=== PATIENT | male | born 1955 | race Caucasian/White ===

== ENCOUNTER 2017-01-07 14:37 | Outpatient (CLI) | payer MEDICARE | END 2017-01-07 14:38 | disposition home or self-care (01) | DX: M17.12 Unilateral primary osteoarthritis, left knee (principal); M11.262 Other chondrocalcinosis, left knee; M25.462 Effusion, left knee ==

== ENCOUNTER 2019-04-19 09:23 | Outpatient (CLI) | payer MEDICARE ==
[2019-04-19 10:33] LABS: BASOPHILS % (AUTO) 0.7 %; EOSINOPHILS # (AUTO) 0.1 10^3/uL (0.0-0.7); EOSINOPHILS % (AUTO) 1.8 %; HGB - HEMOGLOBIN 14.7 g/dL (14.0-18.0); LYMPHOCYTES # (AUTO) 1.7 10^3/uL (1.5-3.5); LYMPHOCYTES % (AUTO) 30.8 %; MEAN CORPUSCULAR HEMOGLOBIN 32.5 pg (27.0-31.0); MEAN CORPUSCULAR HGB CONC 33.3 g/dL (32.0-36.0); MEAN CORPUSCULAR VOLUME 97.6 fL (80.0-94.0); MEAN PLATELET VOLUME 7.1 fL (7.4-11.4); MONOCYTES # (AUTO) 0.4 10^3/uL (0.0-1.0); MONOCYTES % (AUTO) 7.4 %; NEUTROPHILS # (AUTO) 3.3 10^3/uL (1.5-6.6); NEUTROPHILS % (AUTO) 59.3 %; PLT - PLATELET COUNT 255 10^3/uL (130-450); RED BLOOD COUNT 4.51 10^6/uL (4.70-6.10); RED CELL DISTRIBUTION WIDTH 14.1 % (12.0-15.0); WHITE BLOOD COUNT 5.6 x10^3/uL (4.8-10.8)
== END 2019-04-19 09:24 | disposition home or self-care (01) ==
LOC: LAB 09:23
PROVIDERS: ATTEND Orthopaedic Surgery
DX: Z01.818 Encounter for other preprocedural examination (principal)
CPT/HCPCS: 36415; 80051; 85025; 93005

== ENCOUNTER 2019-07-28 20:37 | Emergency (ER) | payer MEDICARE ==
[2019-07-28] MEDS ORDERED: SODIUM CHLORIDE 0.9% 1,000 ML IV ONE ×2 (20:55→22:59)
[2019-07-28] MEDS ORDERED: ONDANSETRON 4 MG/2 ML VIAL IVP STA (21:08)
--- NOTE | 2019-07-28 21:14 | ED Physician Documentation ---
PD HPI NVD - Stated complaint Stated Complaint: ABD PX/VOMITNG - Chief complaint Chief Complaint: Abd Pain - History obtained from History obtained from: Patient - History of Present Illness Timing - onset: How many days ago (2) Timing - duration: Days (2) Timing - details: Abrupt onset Associated symptoms: Abdominal pain (Patient has had crampy abdominal pain associated with nausea and vomiting as well as some diarrhea. Symptoms started a couple of days after he ran out of his pain medications. He had switched providers apparently to a new pain clinic and there was a delay in getting the medication refilled. He would run out of his usual medicines at the appropriate time and the new prescription was not yet in. He was out of his medicines for 2 to 3 days and was having shakiness nausea sweatiness. He was given a temporary prescription by his primary care for some pain medicine locations short acting. He had taken 1 or 2 today but had been having vomiting so was not effective. He is here for evaluation.). No: Fever, Chest pain, Hematemesis Contributing factors: Other (ran out of pain meds several days ago). No: Sick contact, Bad food, Recent antibiotics, Alcohol use Improved by: No: Vomiting Worsened by: Eating Similar symptoms before: Has not had sx before Recently seen: Clinic (PMD yesterday) Review of Systems Constitutional: reports: Chills, Myalgias. denies: Fever Nose: denies: Rhinorrhea / runny nose, Congestion Throat: denies: Sore throat Cardiac: denies: Chest pain / pressure, Palpitations, Pedal edema Respiratory: denies: Dyspnea, Cough GI: reports: Abdominal Pain (crampy), Nausea, Vomiting, Diarrhea Neurologic: reports: Generalized weakness. denies: Focal weakness, Numbness, Altered mental status, Headache PD PAST MEDICAL HISTORY - Past Medical History Respiratory: Pneumonia : Kidney stones Musculoskeletal: Chronic back pain - Past Surgical History Past Surgical History: Yes General: Appendectomy Ortho: Spine surgery - Present Medications Home Medications: Ambulatory Orders Medication Instructions Recorded Confirmed RX: Baclofen 20 mg ORAL BID 08/30/16 08/30/16 RX: Buprenorphine HCl/Naloxone HCl 8 mg SL TID 08/30/16 08/30/16 [Suboxone 8 mg-2 mg Sl Film] RX: cloNIDine [Catapres] 0.1 mg ORAL TID 08/30/16 08/30/16 RX: clonazePAM [Clonazepam] 1 mg ORAL TID 08/30/16 08/30/16 Ondansetron [Zofran Odt] 8 mg SL PRN PRN #20 tab.rapdis 08/31/16 RX: Dextroamphetamine/Amphetamine 30 mg PO BID 08/31/16 08/31/16 [Dextroamp-Amphetamin 30 mg Tab] RX: Mirtazapine 45 mg PO QPM 08/31/16 08/31/16 RX: Oxycodone HCl [Roxicodone] 30 mg PO QID 08/31/16 08/31/16 Ondansetron Odt [Zofran] 4 mg TL Q6H PRN #10 tablet 07/29/19 RX: Famotidine 20 mg PO DAILY #30 tablet 07/29/19 - Allergies Allergies/Adverse Reactions: Allergies Allergy/AdvReac Type Severity Reaction Status Date / Time No Known Drug Allergies Allergy Verified 07/28/19 20:50 - Social History Does the pt smoke?: Yes Smoking Status: Smoker current status unk Does the pt drink ETOH?: No Does the pt have substance abuse?: No - Immunizations Immunizations are current?: Yes - POLST Patient has POLST: No PD ED PE NORMAL - Vitals Vital signs reviewed: Yes - General General: Alert and oriented X 3, No acute distress, Well developed/nourished - Neck Neck: Supple, no meningeal sign, No adenopathy - Cardiac Cardiac: RRR, No murmur - Respiratory Respiratory: Clear bilaterally - Abdomen Abdomen: Soft, Non distended, No organomegaly, Other (No focal tenderness but has mild general tenderness. Slightly more tender in the epigastric area but with no guarding or percussion tenderness.). No: Normal bowel sounds (increas ed) - Back Back: No CVA TTP - Derm Derm: Normal color, Warm and dry - Extremities Extremities: No deformity, No tenderness to palpate, Normal ROM s pain, No edema, No calf tenderness / cord - Neuro Neuro: Alert and oriented X 3, No motor deficit, Normal speech Results - Vitals Vitals: Vital Signs - 24 hr 07/28/19 07/28/19 07/28/19 20:40 21:40 21:51 Temperature 36.5 C Heart Rate 105 H 78 83 Respiratory 24 17 16 Rate Blood Pressure 147/82 H 142/85 H 140/71 H O2 Saturation 98 100 97 07/28/19 23:00 Temperature Heart Rate 88 Respiratory 17 Rate Blood Pressure 133/70 H O2 Saturation 94 Oxygen O2 Source Room air - Labs Labs: Laboratory Tests 07/28/19 07/28/19 21:05 21:05 WBC 14.0 H RBC 5.46 Hgb 17.6 Hct 51.8 MCV 94.9 H MCH 32.2 H MCHC 34.0 RDW 13.6 Plt Count 308 MPV 9.5 Neut # (Auto) 11.5 H Lymph # (Auto) 1.3 L [place] # (Auto) 1.1 H Eos # (Auto) 0.0 Baso # (Auto) 0.0 Absolute Nucleated RBC 0.00 Nucleated RBC % 0.0 Sodium 137 Potassium 3.2 L Chloride 92 L Carbon Dioxide 29 Anion Gap 16.0 H BUN 21 H Creatinine 1.0 Estimated GFR (MDRD) 75 L Glucose 150 H Calcium 10.3 Total Bilirubin 0.9 AST 21 ALT 17 Alkaline Phosphatase 103 Total Protein 9.0 H Albumin 4.9 Globulin 4.1 Albumin/Globulin Ratio 1.2 Lipase 54 H PD MEDICAL DECISION MAKING - ED course Complexity details: re-evaluated patient (He is feeling much improved with some IV fluids as well as pain medicine and antiemetics. Recheck of the abdomen is minimally tender at this point with just a little bit in the epigastric area. I do not feel there is a more significant organ process going on. I think is predominantly the lack of medication.), considered differential (He had been without his narcotic management insulin which is pretty high dose of 30 mg of asked the code own 4 times a day and 30 mg of morphine 3 times a day. As such she is no doubt having some narcotic withdrawal. He also had not been having his omeprazole and so presumably would have some gastritis as well related to that as well as the vomiting.), d/w patient Departure - Departure Disposition: 01 Home, Self Care Clinical Impression: Nausea vomiting and diarrhea, Dehydration Withdrawal symptoms, drug or narcotic Qualifiers: Substance type: opioid Qualified Code(s): F11.23 - Opioid dependence with withdrawal Gastritis Qualifiers: Gastritis type: unspecified gastritis Chronicity: acute Gastritis bleeding: without bleeding Qualified Code(s): K29.00 - Acute gastritis without bleeding Condition: Stable Record reviewed to determine appropriate education?: Yes Instructions: ED Dehydration Follow-Up: Salvatore Velazquez MD [Primary Care Provider] - Prescriptions: RX: Famotidine 20 mg PO DAILY #30 tablet Ondansetron Odt [Zofran] 4 mg TL Q6H PRN #10 tablet PRN Reason: Nausea / Vomiting Comments: Stay well-hydrated. Can continue usual pain medications and also your stomach medicines. Famotidine daily for a month. Use ondansetron if needed for nausea. I think much of your symptoms were from the narcotic withdrawal and then probably led into some irritated stomach (gastritis). Hopefully being hydrated and less symptoms now, he will be able to maintain with the medications at home that you normally take. Recheck if not improved well over the next day or 2 return sooner if worse. Discharge Date/Time: 07/29/19 01:05
[2019-07-28 21:23] LABS: BASOPHILS % (AUTO) 0.2 %; HGB - HEMOGLOBIN 17.6 g/dL (14.0-18.0); LYMPHOCYTES # (AUTO) 1.3 10^3/uL (1.5-3.5); MEAN CORPUSCULAR HEMOGLOBIN 32.2 pg (27.0-31.0); MEAN CORPUSCULAR VOLUME 94.9 fL (80.0-94.0); MEAN PLATELET VOLUME 9.5 fL (7.4-11.4); MONOCYTES # (AUTO) 1.1 10^3/uL (0.0-1.0); MONOCYTES % (AUTO) 8.1 %; NEUTROPHILS # (AUTO) 11.5 10^3/uL (1.5-6.6); NEUTROPHILS % (AUTO) 82.1 %; PLT - PLATELET COUNT 308 10^3/uL (130-450); RED BLOOD COUNT 5.46 10^6/uL (4.70-6.10); RED CELL DISTRIBUTION WIDTH 13.6 % (12.0-15.0)
[2019-07-28] MEDS ORDERED: HYDROmorphone 2 MG/ML VIAL IVP STA ×2 (21:29→23:28)
[2019-07-28] MEDS ORDERED: HALOPERIDOL 5 MG/ML VIAL IVP ONE (21:30)
[2019-07-28] MEDS ORDERED: ACETAMINOPHEN 1,000 MG/100 ML 100 ML IV STA (21:30)
[2019-07-28] MEDS ORDERED: FAMOTIDINE 20 MG/2 ML VIAL IVP STA (21:30)
[2019-07-28 21:37] LABS: ALBUMIN 4.9 g/dL (3.2-5.5); ALBUMIN/GLOBULIN RATIO 1.2 (1.0-2.2); BILIRUBIN,TOTAL 0.9 mg/dL (0.2-1.0); CALCIUM 10.3 mg/dL (8.5-10.3)
[2019-07-28] MEDS ORDERED: POTASSIUM CHLOR 10 MEQ/100 ML 10 MEQ/100 ML BAG IV STA (22:59)
[2019-07-28 23:31] VITALS: BP 133/70
--- NOTE | 2019-07-28 23:56 | Ultrasound Report ---
Reason: upper abd pain and vomiting Procedure Date: 07/28/2019 Accession Number: [id number] / [id number] Procedure: US - Abdomen Limited CPT Code: FULL RESULT: EXAM: ABDOMEN ULTRASOUND LIMITED, RUQ EXAM DATE: 07/28/2019 11:00 PM CLINICAL HISTORY: Upper abdomen pain and vomiting. COMPARISON: None. TECHNIQUE: Real-time scanning was performed with static images obtained. FINDINGS: Liver: Normal in size and echotexture. 15 cm. Main portal vein flow: Hepatopetal. Gallbladder: Sludge and small stones noted within the gallbladder. No gallbladder wall thickening or pericholecystic fluid collections. Biliary System: CBD measures 9 mm. Limited visualization of the lower common bile duct which is obscured by bowel gas artifact. Other: No right hydronephrosis. The pancreas is largely obscured by bowel gas. IMPRESSION: 1. Gallbladder sludge and stones without evidence of acute cholecystitis. 2. The visualized common bile duct is dilated to 9 mm, however, the lower common bile duct and pancreas are obscured by bowel gas. Clinical correlation recommended to exclude cholestasis. MRCP may be helpful to exclude a lower CBD stone or lesion if clinically indicated. RADIA
[2019-07-29] MEDS ORDERED: ONDANSETRON ODT 4 MG Prepack 2 TL PRN (00:41)
== END 2019-07-29 01:05 | disposition home or self-care (01) ==
LOC: ED 20:37
DX: F11.23 Opioid dependence with withdrawal (principal); K29.70 Gastritis, unspecified, without bleeding
CPT/HCPCS: 36415; 76705; 80053; 83690; 85025; 96365; 96367; 96375; 99284; 99285; J0131; J1170

== ENCOUNTER 2021-05-23 11:44 | Outpatient (CLI) | payer MEDICARE ==
--- NOTE | 2021-05-23 12:22 | XRAY Report ---
PROCEDURE: Knee 3 View RT INDICATIONS: PAIN DUE TO INTERNAL ORTHOPEDIC DEVICE TECHNIQUE: 3) views of the right knee(s) were acquired. COMPARISON: None. FINDINGS: Bones: No fractures or dislocations. No suspicious bony lesions. Soft tissues: No joint effusion. No suspicious soft tissue calcifications. IMPRESSION: Right total knee arthroplasty shows no evidence of device loosening or disruption, or nate int effusion. Reviewed by: Kieran Murrell MD on 05/23/2021 12:21 PM PDT Approved by: Kieran Murrell MD on 05/23/2021 12:21 PM PDT Station ID: [id number]
== END 2021-05-23 11:45 | disposition home or self-care (01) ==
LOC: DI 11:44
PROVIDERS: ATTEND Family Medicine
DX: T84.84XS Pain due to internal orthopedic prosthetic devices, implants and grafts, sequela (principal); Z96.653 Presence of artificial knee joint, bilateral

== ENCOUNTER 2021-09-11 13:05 | Outpatient (CLI) | payer MEDICARE, OTHER ==
[2021-09-11 20:01] LABS: BASOPHILS % (AUTO) 0.6 %; EOSINOPHILS # (AUTO) 0.1 10^3/uL (0.0-0.7); EOSINOPHILS % (AUTO) 1.9 %; HCT - HEMATOCRIT 43.1 % (42.0-52.0); HGB - HEMOGLOBIN 13.8 g/dL (14.0-18.0); LYMPHOCYTES # (AUTO) 1.7 10^3/uL (1.5-3.5); LYMPHOCYTES % (AUTO) 34.1 %; MEAN CORPUSCULAR HEMOGLOBIN 32.2 pg (27.0-31.0); MEAN CORPUSCULAR VOLUME 100.7 fL (80.0-94.0); MEAN PLATELET VOLUME 8.7 fL (7.4-11.4); MONOCYTES # (AUTO) 0.3 10^3/uL (0.0-1.0); MONOCYTES % (AUTO) 5.8 %; NEUTROPHILS # (AUTO) 2.8 10^3/uL (1.5-6.6); NEUTROPHILS % (AUTO) 57.6 %; PLT - PLATELET COUNT 289 10^3/uL (130-450); RED BLOOD COUNT 4.28 10^6/uL (4.70-6.10); RED CELL DISTRIBUTION WIDTH 13.7 % (12.0-15.0); WHITE BLOOD COUNT 4.8 x10^3/uL (4.8-10.8)
[2021-09-11 20:16] LABS: BUN - BLOOD UREA NITROGEN 11 mg/dL (6-20); CALCIUM 8.9 mg/dL (8.5-10.3); CARBON DIOXIDE - CO2 28 mmol/L (21-32); CHLORIDE 100 mmol/L (101-111); CREATININE 0.8 mg/dL (0.6-1.2); CRP - C-REACTIVE PROTEIN < 1.0 mg/dL (0-1.0); GFR - MDRD 97 (>89); GLUCOSE 105 mg/dL (70-100); POTASSIUM 4.4 mmol/L (3.5-5.0); SODIUM 136 mmol/L (135-145); URIC ACID 2.8 mg/dL (2.6-7.2)
== END 2021-09-11 13:06 | disposition home or self-care (01) ==
LOC: LAB.S 13:05
PROVIDERS: ATTEND Emergency Medicine
DX: M10.9 Gout, unspecified (principal)
CPT/HCPCS: 36415; 80048; 84550; 85025; 86140

== ENCOUNTER 2022-02-10 10:49 | Emergency (ER) | payer MEDICARE, OTHER ==
--- NOTE | 2022-02-10 11:29 | ED Physician Documentation ---
PD HPI ALTERED MENTAL STATUS - Stated complaint Stated Complaint: CANT WALK/FALLING/ALOC - Chief complaint Chief Complaint: General - History obtained from History obtained from: Patient, Family - History of Present Illness Timing - onset: Today Timing - duration: Hours Timing - details: Abrupt onset ( states sitting at table this morning, had onset of headache and appeared near syncope for 5-10 seconds, then trouble talking clearly and general weakness abruptly.) Quality / character: Confused, Agitated (for 2-3 days) Associated symptoms: Headache (onset this morning), NVD (some nausea and loose stools for 1-2 days, states seems related to opioid withdrawal similar to prior episodes. Was nauseated without vomiting. Shaky with some stumbling on gait. Still conversant.), General weakness. No: Fever Contributing factors: Other ( states the patient may have taken extra 1-2 clonidine tabs last night instead of pain meds.). No: Anticoagulated, Recent med change (Chronic opioid use for low back pain. He had used extra doses last week so ran out early 2 to 3 days ago and so was having some mild withdrawal symptoms. Nausea and shaky. Has had similar in the past if ran out. Current weakness/trouble speaking is different, per .), Intoxicated [place] status: Alert and oriented X 3, Ambulatory (He has chronic low back pain so walks slowly and gentle movement. Chronic pain meds.) Similar symptoms before: Has not had sx before Recently seen: Not recently seen Review of Systems Constitutional: denies: Fever, Chills Eyes: denies: Loss of vision, Photophobia Nose: denies: Rhinorrhea / runny nose, Congestion Throat: denies: Sore throat Cardiac: denies: Chest pain / pressure Respiratory: denies: Dyspnea, Cough GI: reports: Nausea, Diarrhea. denies: Abdominal Pain, Abdominal Swelling, Vomiting, Bloody / black stool : denies: Incontinent Skin: denies: Abrasion (s), Laceration (s) Musculoskeletal: reports: Back pain (chronic with prior back surgeries.). denies: Neck pain Neurologic: reports: Generalized weakness, Confused, Altered mental status (trouble articulating words this morning), Headache (abrupt this morning). denies: Focal weakness, Numbness Endocrine: denies: Easy bruising / bleeding Immunocompromised: denies: Immunocompromised PD PAST MEDICAL HISTORY - Past Medical History Cardiovascular: Hypertension Respiratory: Pneumonia Neuro: None Endocrine/Autoimmune: None : Kidney stones Psych: None Musculoskeletal: Chronic back pain - Past Surgical History Past Surgical History: Yes General: Appendectomy Ortho: Spine surgery - Present Medications Home Medications: Ambulatory Orders Medication Instructions Recorded Confirmed cloNIDine [Catapres] 0.1 mg ORAL TID 08/30/16 02/10/22 clonazePAM [Clonazepam] 1 mg ORAL TID 08/30/16 02/10/22 Dextroamphetamine/Amphetamine 30 mg PO BID 08/31/16 02/10/22 [Dextroamp-Amphetamin 30 mg Tab] Oxycodone HCl [Roxicodone] 30 mg PO QID 08/31/16 02/10/22 Cyclobenzaprine [Flexeril] 10 mg PO TID PRN 02/10/22 02/10/22 Fluoxetine HCl [Prozac] 40 mg PO DAILY 02/10/22 02/10/22 Gabapentin [Neurontin] 800 mg PO 02/10/22 Morphine ER 60 mg PO BID 02/10/22 02/10/22 Nortriptyline HCl [Pamelor] 50 mg PO DAILY 02/10/22 02/10/22 Tamsulosin [Flomax] 0.4 mg PO DAILY 02/10/22 02/10/22 Trazodone HCl 100 mg PO HS 02/10/22 02/10/22 - Allergies Allergies/Adverse Reactions: Allergies Allergy/AdvReac Type Severity Reaction Status Date / Time No Known Drug Allergies Allergy Verified 02/10/22 11:05 - Social History Does the pt smoke?: Yes Smoking Status: Smoker current status unk Does the pt drink ETOH?: No Does the pt have substance abuse?: No - Immunizations Immunizations are current?: Yes - POLST Patient has POLST: No PD ED PE NORMAL - Vitals Vital signs reviewed: Yes (BP adequate) - General General: Alert and oriented X 3, Well developed/nourished, Other (Appears uncomfortable from headache. He is answering questions with dysarthria. Content seems okay. He does have some accent but still can tell the wording is slurred.) - HEENT HEENT: Atraumatic - Neck Neck: Supple, no meningeal sign, No bony TTP, No adenopathy - Cardiac Cardiac: No murmur. No: RRR (bradycardic but regular. ) - Respiratory Respiratory: Clear bilaterally, Other (no chestwall tenderness. ) - Abdomen Abdomen: Soft, Non tender - Back Back: No CVA TTP - Derm Derm: Warm and dry. No: Normal color (mild pallor) - Extremities Extremities: No tenderness to palpate, Normal ROM s pain - Neuro Neuro: Alert and oriented X 3, Other (General motor weakness arms and legs. Dysarthria but content seems normal.) Eye Opening: Spontaneous Motor: Obeys Commands Verbal: Confused GCS Score: 14 Results - Vitals Vitals: Vital Signs - 24 hr 02/10/22 02/10/22 02/10/22 11:05 11:24 12:01 Temperature 36 C L Heart Rate 42 L 33 L 36 L Respiratory 12 15 12 Rate Blood Pressure 104/74 131/60 H 154/68 H O2 Saturation 100 96 02/10/22 12:33 Temperature Heart Rate 36 L Respiratory 18 Rate Blood Pressure 156/63 H O2 Saturation 100 Oxygen O2 Source Room air - EKG (time done) 11:05 Rate: Rate (enter#) (39) Rhythm: Sinus bradycardia [place]: Normal Intervals: Normal [place] QRS: Normal Ischemia: Normal ST segments. No: ST elevation c/w ischemia, ST depression - Labs Labs: Laboratory Tests 02/10/22 02/10/22 02/10/22 11:07 11:07 11:07 WBC 11.3 H RBC 5.52 Hgb 17.7 Hct 51.9 MCV 94.0 MCH 32.1 H MCHC 34.1 RDW 13.2 Plt Count 245 MPV 9.8 Neut # (Auto) 9.1 H Lymph # (Auto) 1.4 L [place] # (Auto) 0.7 Eos # (Auto) 0.0 Baso # (Auto) 0.0 Absolute Nucleated RBC 0.00 Nucleated RBC % 0.0 Sodium 137 Potassium 3.7 Chloride 98 L Carbon Dioxide 25 Anion Gap 14.0 H BUN 22 H Creatinine 0.9 Estimated GFR (MDRD) 84 L Glucose 139 H POC Whole Bld Glucose Calcium 9.7 Magnesium 2.1 Total Bilirubin 0.7 AST 14 ALT 12 Alkaline Phosphatase 79 Troponin I High Sens 4.3 Total Protein 7.9 Albumin 4.6 Globulin 3.3 Albumin/Globulin Ratio 1.4 Lipase 27 Salicylates < 6.0 Urine Opiates Screen Ur Oxycodone Screen Urine Methadone Screen Ur Propoxyphene Screen Acetaminophen < 10 L Ur Barbiturates Screen Ur Tricyclics Screen Ur Phencyclidine Scrn Ur Amphetamine Screen U Methamphetamines Scrn U Benzodiazepines Scrn Urine Cocaine Screen U Cannabinoids Screen 02/10/22 02/10/22 11:17 12:24 WBC RBC Hgb Hct MCV MCH MCHC RDW Plt Count MPV Neut # (Auto) Lymph # (Auto) [place] # (Auto) Eos # (Auto) Baso # (Auto) Absolute Nucleated RBC Nucleated RBC % Sodium Potassium Chloride Carbon Dioxide Anion Gap BUN Creatinine Estimated GFR (MDRD) Glucose POC Whole Bld Glucose 70 Calcium Magnesium Total Bilirubin AST ALT Alkaline Phosphatase Troponin I High Sens Total Protein Albumin Globulin Albumin/Globulin Ratio Lipase Salicylates Urine Opiates Screen POSITIVE H Ur Oxycodone Screen POSITIVE H Urine Methadone Screen NEGATIVE Ur Propoxyphene Screen NEGATIVE Acetaminophen Ur Barbiturates Screen NEGATIVE Ur Tricyclics Screen NEGATIVE Ur Phencyclidine Scrn NEGATIVE Ur Amphetamine Screen POSITIVE H U Methamphetamines Scrn NEGATIVE U Benzodiazepines Scrn NEGATIVE Urine Cocaine Screen NEGATIVE U Cannabinoids Screen NEGATIVE - Rads (name of study) chest Radiology: Prelim report reviewed (no acute process), See rad report head CT Radiology: Prelim report reviewed (left parietal intraparenchymal 3.6 mm bleed with some subdural extension in falx. No midline shift. Minimal effacing. Some edema. ), See rad report PD MEDICAL DECISION MAKING - ED course Complexity details: reviewed results (ICH), re-evaluated patient (He was given some pain medicine. He seems a little prompter with his answers though there is still dysarthria. Still general weakness. Presume some element of opioid withdrawal but his main symptoms are the intracranial bleed.), considered differential (His bradycardia may be from extra clonidine though I think it more likely vagal from headache and acute injury. He is acting generally weak with altered speech so concern for intracranial process. Will check labs as well. Consider low Na, glcose, other process. ), d/w patient, d/w applications consultant (I talked with neurosurgery as well as neuro ICU vp ancillary at [facility]. They are accepting of the patient.) - Critical Care Time(min): 45 Time Includes: Direct patient care, Reassess patient, Document care, Coordinate care, Medical consult Data interpretation: Labs, CXR Procedures excluded from critical care time: EKG Departure - Departure Disposition: 02 Transfer Acute Care Hosp Clinical Impression: Intraparenchymal hemorrhage of brain, Bradycardia Altered mental status Qualifiers: Altered mental status type: stupor Qualified Code(s): R40.1 - Stupor Chronic back pain Qualifiers: Back pain location: low back pain Back pain laterality: unspecified Sciatica presence: unspecified whether sciatica present Qualified Code(s): M54.50 - Low back pain, unspecified; G89.29 - Other chronic pain Opioid dependence Qualifiers: Substance use status: uncomplicated Qualified Code(s): F11.20 - Opioid dependence, uncomplicated Condition: Stable
[2022-02-10] MEDS ORDERED: SODIUM CHLORIDE 0.9% 1,000 ML IV STA (11:31)
[2022-02-10] MEDS ORDERED: HYDROmorphone 0.5 MG/0.5 ML SYRINGE IVP STA (11:35)
[2022-02-10 11:43] LABS: BASOPHILS % (AUTO) 0.2 %; HCT - HEMATOCRIT 51.9 % (42.0-52.0); HGB - HEMOGLOBIN 17.7 g/dL (14.0-18.0); LYMPHOCYTES # (AUTO) 1.4 10^3/uL (1.5-3.5); LYMPHOCYTES % (AUTO) 12.7 %; MEAN CORPUSCULAR HEMOGLOBIN 32.1 pg (27.0-31.0); MEAN CORPUSCULAR HGB CONC 34.1 g/dL (32.0-36.0); MEAN PLATELET VOLUME 9.8 fL (7.4-11.4); MONOCYTES # (AUTO) 0.7 10^3/uL (0.0-1.0); MONOCYTES % (AUTO) 6.1 %; NEUTROPHILS # (AUTO) 9.1 10^3/uL (1.5-6.6); NEUTROPHILS % (AUTO) 80.6 %; PLT - PLATELET COUNT 245 10^3/uL (130-450); RED BLOOD COUNT 5.52 10^6/uL (4.70-6.10); RED CELL DISTRIBUTION WIDTH 13.2 % (12.0-15.0); WHITE BLOOD COUNT 11.3 x10^3/uL (4.8-10.8)
[2022-02-10 11:54] LABS: ACETAMINOPHEN < 10 ug/mL (10-30); ALBUMIN 4.6 g/dL (3.2-5.5); ALBUMIN/GLOBULIN RATIO 1.4 (1.0-2.2); ALKALINE PHOSPHATASE 79 IU/L (42-121); ALT ALANINE AMINOTRANSFERASE 12 IU/L (10-60); AST ASPARTATE AMINOTRANSFERASE 14 IU/L (10-42); BILIRUBIN,TOTAL 0.7 mg/dL (0.2-1.0); BUN - BLOOD UREA NITROGEN 22 mg/dL (6-20); CALCIUM 9.7 mg/dL (8.5-10.3); CARBON DIOXIDE - CO2 25 mmol/L (21-32); CHLORIDE 98 mmol/L (101-111); CREATININE 0.9 mg/dL (0.6-1.2); GFR - MDRD 84 (>89); GLUCOSE 139 mg/dL (70-100); LIPASE 27 U/L (22-51); MAGNESIUM 2.1 mg/dL (1.7-2.8); POTASSIUM 3.7 mmol/L (3.5-5.0); SALICYLATE < 6.0 mg/dL; SODIUM 137 mmol/L (135-145); TOTAL PROTEIN 7.9 g/dL (6.7-8.2)
--- NOTE | 2022-02-10 11:55 | CT Report ---
PROCEDURE: HEAD WO INDICATIONS: AMS today TECHNIQUE: Noncontrast 4.5 mm thick angled axial sections acquired from the foramen magnum to the vertex. For r adiation dose reduction, the following was used: automated exposure control, adjustment of mA and/or kV according to patient size. COMPARISON: None. FINDINGS: Image quality: Excellent. CSF spaces: Basal cisterns are patent. No extra-axial fluid collections. Ventricles are normal in size and shape. Brain: No midline shift. Intraparenchymal hemorrhage within the left superomedial parietal lobe mesha uring 36 mm anteroposterior. Moderate surrounding ill-defined low density is present, indicating vaso genic edema. There is a small amount of adjacent high density material within the interhemispheric fi ssure with a maximal thickness of roughly 6 mm transverse, which extends into the left supratentorial region. Angelo-white matter interface is normal. Skull and face: Calvarium and visualized facial bones are intact, without suspicious lesions. Sinuses: There is moderate because of thickening within the bilateral ethmoid air cells. Bilateral m axillary sinus retention cysts are present. Mastoids are clear. Visualized sinuses and mastoids are o therwise clear. IMPRESSION: 1. Intraparenchymal hemorrhage within the left parietal lobe with extension into the posterior parafa lcine and left supratentorial subdural space. 2. Sinus disease. 3. Findings discussed with Dr. Scott on 02/10/2022 at 1152 hours. Reviewed by: Lovely Grayson MD on 02/10/2022 11:53 AM PDT Approved by: Lovely Grayson MD on 02/10/2022 11:53 AM PDT Station ID: [id number]
--- NOTE | 2022-02-10 12:00 | XRAY Report ---
PROCEDURE: Chest 1 View X-Ray INDICATIONS: chest pain TECHNIQUE: One view of the chest was acquired. COMPARISON: None FINDINGS: Surgical changes and devices: None. Lungs and pleura: No pleural effusions or pneumothorax. Lungs are clear. Mediastinum: Mediastinal contours appear normal. Heart size is normal. Bones and chest wall: No suspicious bony lesions. Overlying soft tissues appear unremarkable. IMPRESSION: No acute process. Reviewed by: Lovely Grayson MD on 02/10/2022 11:59 AM PDT Approved by: Lovely Grayson MD on 02/10/2022 11:59 AM PDT Station ID: [id number]
[2022-02-10] MEDS ORDERED: DEXTROSE 10% 250 ML IV STA (12:07)
[2022-02-10] MEDS ORDERED: TRANEXAMIC ACID 1,000 MG in SODIUM CHLORIDE 0.9% 100ML 100 ML IV STA (12:08)
[2022-02-10 12:36] LABS: MUDS CUTOFF CONCENTRATIONS CUTOFF CONC BELOW:
[2022-02-10 13:02] LABS: AMPHETAMINE SCREEN,URINE POSITIVE (NEGATIVE); BARBITURATE SCREEN,UR NEGATIVE (NEGATIVE); BENZODIAZEPINES SCREEN, URINE NEGATIVE (NEGATIVE); COCAINE SCREEN URINE NEGATIVE (NEGATIVE); METHADONE SCREEN, URINE NEGATIVE (NEGATIVE); METHAMPHETAMINES SCREEN, URINE NEGATIVE (NEGATIVE); OPIATE SCREEN, URINE POSITIVE (NEGATIVE); OXYCODONE SCREEN, URINE POSITIVE (NEGATIVE); PROPOXYPHENE SCREEN, URINE NEGATIVE (NEGATIVE); THC CANNABINOID SCREEN, URINE NEGATIVE (NEGATIVE); TRICYCLIC ANTIDEPRESSANT,URINE NEGATIVE (NEGATIVE)
[2022-02-10 13:11] VITALS: BP 158/67
== END 2022-02-10 13:41 | disposition short-term general hospital (02) ==
LOC: ED 10:49
DX: I61.9 Nontraumatic intracerebral hemorrhage, unspecified (principal); I10 Essential (primary) hypertension; F17.200 Nicotine dependence, unspecified, uncomplicated; R40.1 Stupor; M54.50 Low back pain, unspecified; G89.29 Other chronic pain; Z20.822 Contact with and (suspected) exposure to COVID-19
CPT/HCPCS: 36415; 70450; 71045; 80053; 80306; 80307; 83690; 83735; 84484; 85025; 87635; 93005; 96374; 96375; 99285; 99291; G0480; J1170; J3490; 80329; 86850; 86900; 86901

== ENCOUNTER 2022-04-07 12:24 | Emergency (ER) | payer MEDICARE, OTHER ==
--- OUTSIDE RECORDS SUMMARY | 2022-04-07 12:36 | EXTERNAL MEDICAL SUMMARY RPT | Continuity of Care Document ---
:1955 Author Organization [facility] Address [address] [place] [address] Phone Allergies No information. Encounters No information. Medications No information. 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
[2022-04-07] MEDS ORDERED: SODIUM CHLORIDE 0.9% 1,000 ML IV STA (12:47)
--- NOTE | 2022-04-07 12:51 | ED Physician Documentation ---
History of Present Illness - Stated complaint Stated Complaint: HEAD PAIN - Chief complaint Chief Complaint: Neuro - Additonal information Additional information: 66-year-old male presents to the emergency department for evaluation of approxi mately 10 days frontal headache. This gentleman has a history of an intraparenchymal hemorrhage 02/10/2022. He was initially seen in this emergency department and ultimately transferred to [facility] for further care. His at the bedside states that he had no residual physical side effects from the intraparenchymal hemorrhage with the exception of some personality changes. This gentleman has a history of chronic back pain, as well as opioid dependence. He does take clonazepam and morphine daily for treatment of such. With the onset of this headache he has had no fevers, chills or neck pain. No nausea or vomiting. He appears chronically debilitated and is unable to stand upright due to the back pain. Patient is scheduled for an MRI on 22 April with a follow-up with neurology 2 days later at [facility] Review of Systems Constitutional: denies: Fever, Chills Eyes: denies: Loss of vision Ears: reports: Reviewed and negative Nose: reports: Reviewed and negative Throat: reports: Reviewed and negative Cardiac: denies: Chest pain / pressure, Palpitations Respiratory: denies: Dyspnea, Cough GI: denies: Abdominal Pain, Nausea, Vomiting Skin: denies: Rash, Lesions Musculoskeletal: reports: Back pain (chroniv) Neurologic: reports: Headache. denies: Syncope, Seizure, Confused Psychiatric: reports: Reviewed and negative PD PAST MEDICAL HISTORY - Past Medical History Cardiovascular: Hypertension Respiratory: Pneumonia Neuro: None Endocrine/Autoimmune: None : Kidney stones HEENT: None Psych: None Musculoskeletal: Chronic back pain Derm: None - Past Surgical History Past Surgical History: Yes General: Appendectomy Ortho: Spine surgery - Present Medications Home Medications: Ambulatory Orders Medication Instructions Recorded Confirmed cloNIDine [Catapres] 0.1 mg ORAL TID 08/30/16 02/10/22 clonazePAM [Clonazepam] 1 mg ORAL TID 08/30/16 02/10/22 Dextroamphetamine/Amphetamine 30 mg PO BID 08/31/16 02/10/22 [Dextroamp-Amphetamin 30 mg Tab] Oxycodone HCl [Roxicodone] 30 mg PO QID 08/31/16 02/10/22 Cyclobenzaprine [Flexeril] 10 mg PO TID PRN 02/10/22 02/10/22 Fluoxetine HCl [Prozac] 40 mg PO DAILY 02/10/22 02/10/22 Gabapentin [Neurontin] 800 mg PO 02/10/22 Morphine ER 60 mg PO BID 02/10/22 02/10/22 Nortriptyline HCl [Pamelor] 50 mg PO DAILY 02/10/22 02/10/22 Tamsulosin [Flomax] 0.4 mg PO DAILY 02/10/22 02/10/22 Trazodone HCl 100 mg PO HS 02/10/22 02/10/22 - Allergies Allergies/Adverse Reactions: Allergies Allergy/AdvReac Type Severity Reaction Status Date / Time No Known Drug Allergies Allergy Verified 04/07/22 12:31 - Social History Does the pt smoke?: Yes Smoking Status: Smoker current status unk Does the pt drink ETOH?: No Does the pt have substance abuse?: No - Immunizations Immunizations are current?: Yes - POLST Patient has POLST: No PD ED PE EXPANDED - General General: Alert, In Pain, Other (Thin appearance) - Neck Neck: Supple w/out meningeal sx. No: Adenopathy - Cardiac Cardiac: Regular Rate, Radial strong equal, Pedal strong equal, Cap refill < 2 sec - Respiratory Respiratory: Clear to ausultation clotilde - Abdomen Abdomen: Normal Bowel sounds. No: Tender to palpation - Extremities Extremities: Normal. No: Deformity, Tenderness - Neuro Neuro: Alert and Oriented X 3, Lethargic, CNII-XII intact, Normal speech. No: Nystagmus - GCS Eye Opening: Spontaneous Motor: Obeys Commands Verbal: Oriented Total: 15 Results - Vitals Vitals: Vital Signs - 24 hr 04/07/22 12:31 Temperature 36.5 C Heart Rate 82 Respiratory 16 Rate Blood Pressure 132/70 H O2 Saturation 99 Oxygen O2 Source Room air - Labs Labs: Laboratory Tests 04/07/22 04/07/22 04/07/22 13:03 13:03 13:03 WBC 6.8 RBC 4.39 L Hgb 14.5 Hct 43.2 MCV 98.4 H MCH 33.0 H MCHC 33.6 RDW 13.6 Plt Count 248 MPV 8.6 Neut # (Auto) 5.3 Lymph # (Auto) 1.1 L Kimball # (Auto) 0.3 Eos # (Auto) 0.0 Baso # (Auto) 0.0 Absolute Nucleated RBC 0.00 Nucleated RBC % 0.0 PT 12.9 H INR 1.2 Sodium 138 Potassium 4.5 Chloride 101 Carbon Dioxide 29 Anion Gap 8.0 BUN 10 Creatinine 1.0 Estimated GFR (MDRD) 75 L Glucose 98 Calcium 9.4 Total Bilirubin 0.3 AST < 10 L ALT < 10 L Alkaline Phosphatase 69 Total Protein 7.0 Albumin 3.9 Globulin 3.1 Albumin/Globulin Ratio 1.3 Lipase 29 - Rads (name of study) CT head Radiology: Final report received (No recurrent hemorrhages seen. 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 He has a history of a left frontal intraparenchymal hemorrhage in late January 2022. He is followed by neurology at [facility] and is scheduled for an MRI upcoming in the next few weeks as well as follow-up. Patient presents with no focal neurodeficits. Screening labs and vital signs without acute worrisome findings. Repeat CT of the head today shows no acute intraparenchymal hemorrhage. There is some encephalomalacia at the site of the previous bleed. Patient does have a longstanding history of opioid use as well as opioid dependence in the setting of chronic back pain. These findings were discussed with patient and his . They feel reassured knowing that there is no findings of an acute bleed today. He is discharged home in stable condition. Continue follow-up with neurology. Emergent return precautions were discussed for worsening symptoms or focal deficits. Departure - Departure Disposition: 01 Home, Self Care Clinical Impression: Headache Qualifiers: Headache type: other headache syndrome Qualified Code(s): G44.89 - Other headache syndrome Condition: Stable Record reviewed to determine appropriate education?: Yes Comments: So was seen today in the emergency department because he has had a headache for more than a week. The headache is in the front part of his brain. A repeat CT of his head today shows no new findings of bleeding in the brain. He does not have any deficits in his motor movements or exam of his cranial Jaclyn. Is important that you continue close follow-up with his neurologist at [facility]. They are likely better equipped to manage his headaches. Continue his previous medications as otherwise prescribed. If So has slurred speech, facial droop or sudden weakness in his arms or legs or has any lapses in consciousness then please return immediately to the ER for a second evaluation.
[2022-04-07 13:13] LABS: BASOPHILS % (AUTO) 0.4 %; EOSINOPHILS % (AUTO) 0.3 %; HCT - HEMATOCRIT 43.2 % (42.0-52.0); HGB - HEMOGLOBIN 14.5 g/dL (14.0-18.0); LYMPHOCYTES # (AUTO) 1.1 10^3/uL (1.5-3.5); MEAN CORPUSCULAR HGB CONC 33.6 g/dL (32.0-36.0); MEAN CORPUSCULAR VOLUME 98.4 fL (80.0-94.0); MEAN PLATELET VOLUME 8.6 fL (7.4-11.4); MONOCYTES # (AUTO) 0.3 10^3/uL (0.0-1.0); MONOCYTES % (AUTO) 4.7 %; NEUTROPHILS # (AUTO) 5.3 10^3/uL (1.5-6.6); NEUTROPHILS % (AUTO) 78.3 %; PLT - PLATELET COUNT 248 10^3/uL (130-450); RED BLOOD COUNT 4.39 10^6/uL (4.70-6.10); RED CELL DISTRIBUTION WIDTH 13.6 % (12.0-15.0); WHITE BLOOD COUNT 6.8 x10^3/uL (4.8-10.8)
[2022-04-07] MEDS ORDERED: ONDANSETRON 4 MG/2 ML VIAL IVP STA (13:16)
[2022-04-07 13:17] LABS: INR 1.2 (0.8-1.2); PT - PROTHROMBIN TIME 12.9 secs (9.9-12.6)
[2022-04-07 13:32] LABS: ALBUMIN 3.9 g/dL (3.2-5.5); ALBUMIN/GLOBULIN RATIO 1.3 (1.0-2.2); ALKALINE PHOSPHATASE 69 IU/L (42-121); ALT ALANINE AMINOTRANSFERASE < 10 IU/L (10-60); AST ASPARTATE AMINOTRANSFERASE < 10 IU/L (10-42); BILIRUBIN,TOTAL 0.3 mg/dL (0.2-1.0); BUN - BLOOD UREA NITROGEN 10 mg/dL (6-20); CALCIUM 9.4 mg/dL (8.5-10.3); CARBON DIOXIDE - CO2 29 mmol/L (21-32); CHLORIDE 101 mmol/L (101-111); GFR - MDRD 75 (>89); GLUCOSE 98 mg/dL (70-100); LIPASE 29 U/L (22-51); POTASSIUM 4.5 mmol/L (3.5-5.0); SODIUM 138 mmol/L (135-145)
--- NOTE | 2022-04-07 14:07 | CT Report ---
PROCEDURE: HEAD WO INDICATIONS: headache for 1 week; hx of IPH TECHNIQUE: Noncontrast 4.5 mm thick angled axial sections acquired from the foramen magnum to the vertex. For r adiation dose reduction, the following was used: automated exposure control, adjustment of mA and/or kV according to patient size. COMPARISON: 02/10/2022, 07/01/2016 FINDINGS: Image quality: Excellent. CSF spaces: Basal cisterns are patent. No extra-axial fluid collections. Ventricles are normal in size and shape. Brain: This patient had a prior hemorrhagic infarct involving the left posterior medial frontal lobe . At this site, no recurrent hemorrhage is seen. There is encephalomalacia with volume loss seen. No midline shift. No intracranial masses or hemorrhage. Angelo-white matter interface is normal. Skull and face: Calvarium and visualized facial bones are intact, without suspicious lesions. Sinuses: There is complete opacification of the left maxillary sinus. At least moderate mucosal thic kening is seen involving the anterior ethmoid air cells on both sides. There is subtotal mucosal thic kening within the left frontal sinus. No significant abnormal fluid can be seen within the mastoid ai r cells. IMPRESSION: No recurrent hemorrhage is seen. 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 Paranasal sinus disease is seen, which is worse on the current study than on the prior. Reviewed by: Jose David Paez MD on 04/07/2022 1:06 PM ESA Approved by: Jose David Paez MD on 04/07/2022 1:06 PM ESA Station ID: [id number]
[2022-04-07 14:23] VITALS: BP 130/80
== END 2022-04-07 14:23 | disposition home or self-care (01) ==
LOC: ED 12:24
DX: G44.89 Other headache syndrome (principal)
CPT/HCPCS: 36415; 80053; 83690; 85025; 85610; 96374; 99282

== ENCOUNTER 2023-10-28 14:40 | Outpatient (CLI) | payer MEDICARE ==
--- NOTE | 2023-10-28 19:26 | CT Report ---
PROCEDURE: Low Dose Lung Cancer Screen INDICATIONS: TOBACCO DEPENDENCE TECHNIQUE: A CT scan of the chest was performed. Intravenous contrast media was not administered. Images were re corded and evaluated at appropriate window settings. Reformats: axial MIP of the chest, coronal and s agittal. For radiation dose reduction, the following was used: automated exposure control, adjustment of mA and/or kV according to patient size. COMPARISON: None. FINDINGS: Image quality: Excellent. Prior cancer history: No. Lungs and pleura: Severe apical predominant centrilobular and paraseptal emphysema. No suspicious pul monary nodule or consolidation. Dependent atelectasis. Linear atelectasis in the middle lobe and ling miranda. Mediastinum: Heart size is normal. No pericardial effusion. No large vessel abnormality. No mediastin al adenopathy by size criteria. Mild calcification of the thoracic aorta. Mild coronary vessel calci fications. Chest wall and lower neck: Thyroid is unremarkable. No axillary or supraclavicular adenopathy by size . Bones: No aggressive osseous abnormality. No acute fractures. Marked degenerative changes at L1-L2. T horacic spine demonstrates mild multilevel degenerative changes. Remote left-sided lateral seventh ri b fracture. Upper Abdomen: Limited noncontrast images of the upper abdomen demonstrates no pneumoperitoneum or ac monica findings. Calcification of the abdominal aorta and splenic artery. Tiny amount of gallbladder slu dge. IMPRESSION: 1. No suspicious pulmonary nodules or consolidation. Lung RAD: 1 - Negative. Recommendation: Continue annual screening in 12 Months with LDCT 2. Severe apical predominant emphysema. 3. Mild coronary vessel calcifications. Reviewed by: Tulio Giron MD on 10/28/2023 7:25 PM PST Approved by: Tulio Giron MD on 10/28/2023 7:25 PM PST Station ID: [id number]
== END 2023-10-28 14:41 | disposition home or self-care (01) ==
LOC: DI 14:40
PROVIDERS: ATTEND Physician Assistant Medical
DX: Z12.2 Encounter for screening for malignant neoplasm of respiratory organs (principal); F17.210 Nicotine dependence, cigarettes, uncomplicated; J43.2 Centrilobular emphysema; I25.10 Atherosclerotic heart disease of native coronary artery without angina pectoris

== ENCOUNTER 2023-10-28 14:42 | Outpatient (CLI) | payer MEDICARE ==
--- NOTE | 2023-10-28 16:07 | CT Report ---
PROCEDURE: HEAD WO INDICATIONS: MENTAL STATUS CHANGE TECHNIQUE: Noncontrast 4.5 mm thick angled axial sections acquired from the foramen magnum to the vertex. For r adiation dose reduction, the following was used: automated exposure control, adjustment of mA and/or kV according to patient size. COMPARISON: CT head 04/07/2022 FINDINGS: Image quality: Excellent. CSF spaces: Basal cisterns are patent. No extra-axial fluid collections. Ventricles are normal in size and shape. Brain: No midline shift. No intracranial masses or hemorrhage. Angelo-white matter interface is norm al. Focus of low-attenuation is present in the posterior left frontal lobe most consistent with prio r ischemia. Skull and face: Calvarium and visualized facial bones are intact, without suspicious lesions. Sinuses: Visualized sinuses demonstrate complete opacification of the left frontal as well as left m axillary sinus. Prominent ethmoid mucosal thickening is present. IMPRESSION: No acute intracranial pathology. Reviewed by: Megan Llanes MD on 10/28/2023 4:05 PM PST Approved by: Megan Llanes MD on 10/28/2023 4:05 PM PST Station ID: [id number]
== END 2023-10-28 14:43 | disposition home or self-care (01) ==
LOC: DI 14:42
PROVIDERS: ATTEND Physician Assistant Medical
DX: R41.82 Altered mental status, unspecified (principal); Z12.2 Encounter for screening for malignant neoplasm of respiratory organs; F17.210 Nicotine dependence, cigarettes, uncomplicated; J43.2 Centrilobular emphysema; I25.10 Atherosclerotic heart disease of native coronary artery without angina pectoris

== ENCOUNTER 2023-11-05 08:00 | Outpatient (CLI) | payer MEDICARE | END 2023-11-05 08:01 | disposition home or self-care (01) | LOC: LAB.S 08:00 | PROVIDERS: ATTEND Emergency Medicine | DX: R05.9 Cough, unspecified (principal) ==

== ENCOUNTER 2024-05-23 18:14 | Emergency (ER) | payer MEDICARE, OTHER ==
[2024-05-23 18:26] VITALS: O2SAT 100
--- NOTE | 2024-05-23 19:03 | ED Physician Documentation ---
PD HPI HEAD INJURY - Stated complaint Stated Complaint: HEAD INJ - Chief complaint Chief Complaint: Trauma Hd/Nk - History obtained from History obtained from: Patient - Additional information Additional information: 68-year-old gentleman with unknown tetanus status. 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 He did lose consciousness and he has a moderate headache. No other injuries. PD PAST MEDICAL HISTORY - Past Medical History Past Medical History: Yes Cardiovascular: Hypertension Respiratory: Pneumonia Neuro: None Endocrine/Autoimmune: None : Kidney stones HEENT: None Psych: None Musculoskeletal: Chronic back pain Derm: None - Past Surgical History Past Surgical History: Yes General: Appendectomy Ortho: Spine surgery - Present Medications Home Medications: Ambulatory Orders Medication Instructions Recorded Confirmed cloNIDine [Catapres] 0.1 mg ORAL TID 08/30/16 04/07/22 clonazePAM [Clonazepam] 1 mg ORAL TID 08/30/16 04/07/22 Dextroamphetamine/Amphetamine 30 mg PO BID 08/31/16 02/10/22 [Dextroamp-Amphetamin 30 mg Tab] Oxycodone HCl [Roxicodone] 30 mg PO QID 08/31/16 04/07/22 Cyclobenzaprine [Flexeril] 10 mg PO TID PRN 02/10/22 02/10/22 Fluoxetine HCl [Prozac] 40 mg PO DAILY 02/10/22 02/10/22 Gabapentin [Neurontin] 800 mg PO 02/10/22 Morphine ER 60 mg PO BID 02/10/22 04/07/22 Nortriptyline HCl [Pamelor] 50 mg PO DAILY 02/10/22 04/07/22 Tamsulosin [Flomax] 0.4 mg PO DAILY 02/10/22 04/07/22 Trazodone HCl 100 mg PO HS 02/10/22 04/07/22 - Allergies Allergies/Adverse Reactions: Allergies Allergy/AdvReac Type Severity Reaction Status Date / Time No Known Drug Allergies Allergy Verified 05/23/24 18:18 - Social History Does the pt smoke?: Yes Smoking Status: Current every day smoker Does the pt drink ETOH?: No Does the pt have substance abuse?: No - Immunizations Immunizations are current?: Yes - POLST Patient has POLST: No PD ED PE NORMAL - Vitals Vital signs reviewed: Yes - General General: Alert and oriented X 3, No acute distress - HEENT HEENT: PERRL, EOMI, Other (2 cm laceration right anterior scalp under the hairline) - Neck Neck: Supple, no meningeal sign, No bony TTP - Neuro Neuro: Alert and oriented X 3, auto body customizer 2-12 intact Eye Opening: Spontaneous Motor: Obeys Commands Verbal: Oriented GCS Score: 15 Results - Vitals Vitals: Vital Signs - 24 hr 05/23/24 18:18 Temperature 36.5 C Heart Rate 73 Respiratory 16 Rate Blood Pressure 134/81 H O2 Saturation 100 Oxygen O2 Source Room air - Rads (name of study) CT of the head was unremarkable Relevant Findings:: Final report received, EMP independent interpretation of test Procedures - Laceration (location) scalp Length in cm: 2 Wound type: Linear Anesthesia: Other (lidocaine gel) Wound preparation: Irrigated copiously NS Skin layer closure: [place] (3) Other: Tetanus booster given Departure - Departure Disposition: Home, Self Care Clinical Impression: Scalp laceration Qualifiers: Encounter type: initial encounter Qualified Code(s): S01.01XA - Laceration without foreign body of scalp, initial encounter Concussion Qualifiers: Encounter type: initial encounter Loss of consciousness presence/duration: with LOC of 30 min or less Qualified Code(s): S06.0X1A - Concussion with loss of con sciousness of 30 minutes or less, initial encounter Condition: Good Record reviewed to determine appropriate education?: Yes Instructions: ED Laceration Scalp Stitch Or Stap, ED Head Injury Closed Comments: You will need the jamar removed in about 10 days, you can follow-up with your regular doctor or to a walk-in clinic or come back here. Return for new or worsening symptoms. Forms: PCP List
[2024-05-23] MEDS: LIDOCAINE OINTMENT 5% 35.44 GM TUBE TOP STA (19:22)
[2024-05-23] MEDS: TETANUS/DIPHTHERIA/PERTUSSIS 0.5 ML SYRINGE IM ONE (19:23)
--- NOTE | 2024-05-23 19:32 | CT Report ---
PROCEDURE: Head WO INDICATIONS: head inj TECHNIQUE: Noncontrast 4.5 mm thick angled axial sections acquired from the foramen magnum to the vertex. For r adiation dose reduction, the following was used: automated exposure control, adjustment of mA and/or kV according to patient size. COMPARISON: None. FINDINGS: Image quality: Excellent. CSF spaces: Basal cisterns are patent. No extra-axial fluid collections. Ventricles are normal in size and shape. Brain: No midline shift. Stable focus of encephalitis within the left parietal lobe. No intracranial masses or hemorrhage. Angelo-white matter interface is normal. Skull and face: Calvarium and visualized facial bones are intact, without suspicious lesions. Sinuses: Complete opacification of the left maxillary and left frontal sinuses. Partial opacification of the ethmoid air cells. The mastoids are clear. IMPRESSION: No acute intracranial pathology. Reviewed by: Alvin Koch MD on 05/23/2024 6:30 PM AKLUPE Approved by: Alvin Koch MD on 05/23/2024 6:30 PM AKDT Station ID: [id number]
[2024-05-23 20:02] VITALS: BP 128/80
== END 2024-05-23 19:54 | disposition home or self-care (01) ==
LOC: ED 18:14
DX: S01.01XA Laceration without foreign body of scalp, initial encounter (principal); S06.0X1A Concussion with loss of consciousness of 30 minutes or less, initial encounter; R40.2412 Glasgow coma scale score 13-15, at arrival to emergency department; W20.8XXA Other cause of strike by thrown, projected or falling object, initial encounter; Y93.H2 Activity, gardening and landscaping; F17.200 Nicotine dependence, unspecified, uncomplicated
CPT/HCPCS: 12001; 70450; 90471; 90715; 99284; A9270